=== PATIENT | female | born 1980 | race Caucasian/White ===

== ENCOUNTER 2016-12-25 14:08 | Observation (INO) | payer MEDICAID ==
[~2016-12-25 14:08] MED LIST: BUPR8SUB SL; CLIN75CA PO; CLON.5 PO; FLUT1SPR5 EACH NARE; PRENTAB44 PO; VENTAER INH
--- NOTE | 2016-12-25 14:35 | MH ---
cc: LOLA GASTON DATE OF ADMISSION: 12/25/2016 INDICATION A 32-week with known cervical incompetence, possibly breaking through her stitch, biophysical profile revealing low KATRINA of 5 cm, extreme stress. HISTORY OF PRESENT CONDITION The patient is a 36-year-old single white female, 2, para 0-1-0-1 with LMP 05/07/2016 and EDC February 19, 2017. Currently at 32-weeks by early dating, in the first trimester and subsequent sonography. She has been followed very closely through this and her prior . Her prior , she was hospitalized for extended length of time due to the recognition that her cervix was opening at 20-weeks and she was not a candidate for cerclage. This which was unplanned, we placed a cerclage at 11-weeks and it has held until apparently now. She is complicated by the fact that she is on chronic opioid maintenance specifically Subutex 8 mg t.i.d. She has mild hypertension that has been adequately controlled on Aldomet 250 b.i.d. She is on Gabapentin 300 mg four times a day and she takes occasional Klonopin for severe anxiety. Her [employer] Aide is Jewels Dos Santosmelissa at [phone]. She also sees someone by the name of Phyllis. Again, the Gabapentin is for chronic back pain and peripheral neuropathy. She has been very compliant with her care as she comes in every 1-2 weeks for her Subutex and management of her other issues. Her cerclage was checked digitally every other week and then in the interval she has biophysical profile. Her social situation is complicated at best and I think this does add to her stress. She has good movement. No leaking or bleeding. No headache, blurred vision, nausea or vomiting. Her weight gain has been from 188 to 224 pounds this . Her blood type is A+. Her hemoglobin was 14.5. She is immune to Spanish measles and chickenpox. She is hepatitis B negative, hepatitis C positive. Negative for Chlamydia and gonorrhea. Her tox screens in the office have been negative. 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 PHYSICAL EXAMINATION She on physical exam is an overweight female who appears very anxious. Her lungs are clear. Heart rate and rhythm are regular. Her fundus is difficult to palpate. Ultrasound today showed an KATRINA of 5, good cardiac rhythm on anterior placenta, decreased amniotic fluid. She got a 2 for movement, breathing, tone. Her cervix on physical exam still feels closed but ultrasound says she is dilated 2 cm and has 1.5 centimeters of thickness. Extremities are unremarkable. IMPRESSION 32-week on opioid maintenance with Subutex, history of hepatitis C, history of incompetent cervix, history of cerclage in place that may be being placed on tension. PLAN Plan is to proceed with 24-hour observation, repeat her biophysical profile and make sure there is no other issues going on. Lola Gaston MD PPC/TLL /12:52 PM /2:33 PM SANDOVAL
[2016-12-25] MEDS: LACTATED RINGER'S 1000 ML INJ 1,000 ML IV SCH ×3 (15:00→22:14)
[2016-12-25 16:16] LABS: BASOPHIL % 0.3 % (0.0-2.0); EOSINOPHIL # 0.3 TH/MM3 (0-0.4); EOSINOPHIL % 2.1 % (0.0-4.0); HEMATOCRIT 30.3 % (35.0-46.0); HEMO FLAGS DIFF FINAL; LYMPH % 17.6 % (9.0-44.0); LYMPHOCYTE # 2.4 TH/MM3 (1.0-4.8); MEAN CELL VOLUME 94.5 FL (80.0-100.0); MEAN CORPUSCULAR HEMOGLOBIN 30.5 PG (27.0-34.0); MEAN CORPUSCULAR HGB CONC 32.3 % (32.0-36.0); MONO % 7.2 % (0.0-8.0); NEUT % 72.8 % (16.0-70.0); PLATELET COUNT 240 TH/MM3 (150-450); RED CELL DISTRIBUTION WIDTH 14.3 % (11.6-17.2); WHITE BLOOD COUNT 13.7 TH/MM3 (4.0-11.0)
[2016-12-25 16:22] LABS: BARBITURATES, URINE NEG (NEG)
[2016-12-25 16:23] LABS: AMPHETAMINE, URINE NEG (NEG); COCAINE, URINE NEG (NEG)
[2016-12-25 16:38] LABS: BICARBONATE 25.6 MEQ/L (21.0-32.0); POTASSIUM 3.5 MEQ/L (3.5-5.1)
--- NOTE | 2016-12-25 17:46 | PD.OB.ANTE ---
Subjective Interval History Quiet in room but professes to be very anxious Wants a 1 mg klonipin to sleep no UCs on strip FHR reassuring Objective Lab & Micro Results Test 12/25/16 12/25/16 14:25 15:10 Urine Opiates Screen NEG Urine Barbiturates Screen NEG Urine Amphetamines Screen NEG Urine Benzodiazepines Screen NEG Urine Cocaine Screen NEG Urine Cannabinoids Screen NEG White Blood Count 13.7 TH/MM3 Red Blood Count 3.20 MIL/MM3 Hemoglobin 9.8 GM/DL Hematocrit 30.3 % Mean Corpuscular Volume 94.5 FL Mean Corpuscular Hemoglobin 30.5 PG Mean Corpuscular Hemoglobin 32.3 % Concent Red Cell Distribution Width 14.3 % Platelet Count 240 TH/MM3 Mean Platelet Volume 8.6 FL Neutrophils (%) (Auto) 72.8 % Lymphocytes (%) (Auto) 17.6 % Monocytes (%) (Auto) 7.2 % Eosinophils (%) (Auto) 2.1 % Basophils (%) (Auto) 0.3 % Neutrophils # (Auto) 10.0 TH/MM3 Lymphocytes # (Auto) 2.4 TH/MM3 Monocytes # (Auto) 1.0 TH/MM3 Eosinophils # (Auto) 0.3 TH/MM3 Basophils # (Auto) 0.0 TH/MM3 CBC Comment DIFF FINAL Differential Comment Sodium Level 138 MEQ/L Potassium Level 3.5 MEQ/L Chloride Level 105 MEQ/L Carbon Dioxide Level 25.6 MEQ/L Anion Gap 7 MEQ/L Blood Urea Nitrogen 7 MG/DL Creatinine 0.51 MG/DL Estimat Glomerular Filtration 137 ML/MIN Rate Random Glucose 106 MG/DL Calcium Level 9.2 MG/DL Physical Exam GENERAL: Well-nourished, well-developed patient. CARDIOVASCULAR: Regular rate and rhythm without murmurs, gallops, or rubs. RESPIRATORY: Breath sounds equal bilaterally. No accessory muscle use. ABDOMEN/GI: Abdomen soft, non-tender. strip reactive EXTREMITIES: No cyanosis or edema, non-tender, without signs of DVT. Assessment and Plan Assessment and Plan give betamethasone can have one dose klonipin BPP in Lola Jordan MD December 25, 2016 17:46
[2016-12-25] MEDS: BUPRENORPHINE HCL 8 MG SUBLINGUAL TAB SL SCH (17:51)
[2016-12-25] MEDS: BETAMETHASONE SOD PHOS/ACETATE SUSP 30 MG/5 ML VIAL IM SCH (17:51)
[2016-12-25] MEDS ORDERED: clonazePAM 1 MG TAB PO ONE (18:00)
[2016-12-25] MEDS: METHYLDOPA 250 MG TAB PO SCH (22:14)
[2016-12-26] MEDS: BUPRENORPHINE HCL 8 MG SUBLINGUAL TAB SL SCH ×3 (05:48→21:47)
--- NOTE | 2016-12-26 07:08 | PD.OB.ANTE ---
Subjective Interval History quiet night meeds ffn today and repeat BPP before determining if can go home. await results. can have her subutex while here. Objective Lab & Micro Results Test 12/25/16 12/25/16 14:25 15:10 Urine Opiates Screen NEG Urine Barbiturates Screen NEG Urine Amphetamines Screen NEG Urine Benzodiazepines Screen NEG Urine Cocaine Screen NEG Urine Cannabinoids Screen NEG White Blood Count 13.7 TH/MM3 Red Blood Count 3.20 MIL/MM3 Hemoglobin 9.8 GM/DL Hematocrit 30.3 % Mean Corpuscular Volume 94.5 FL Mean Corpuscular Hemoglobin 30.5 PG Mean Corpuscular Hemoglobin 32.3 % Concent Red Cell Distribution Width 14.3 % Platelet Count 240 TH/MM3 Mean Platelet Volume 8.6 FL Neutrophils (%) (Auto) 72.8 % Lymphocytes (%) (Auto) 17.6 % Monocytes (%) (Auto) 7.2 % Eosinophils (%) (Auto) 2.1 % Basophils (%) (Auto) 0.3 % Neutrophils # (Auto) 10.0 TH/MM3 Lymphocytes # (Auto) 2.4 TH/MM3 Monocytes # (Auto) 1.0 TH/MM3 Eosinophils # (Auto) 0.3 TH/MM3 Basophils # (Auto) 0.0 TH/MM3 CBC Comment DIFF FINAL Differential Comment Sodium Level 138 MEQ/L Potassium Level 3.5 MEQ/L Chloride Level 105 MEQ/L Carbon Dioxide Level 25.6 MEQ/L Anion Gap 7 MEQ/L Blood Urea Nitrogen 7 MG/DL Creatinine 0.51 MG/DL Estimat Glomerular Filtration 137 ML/MIN Rate Random Glucose 106 MG/DL Calcium Level 9.2 MG/DL Physical Exam GENERAL: Well-nourished, well-developed patient. CARDIOVASCULAR: Regular rate and rhythm without murmurs, gallops, or rubs. RESPIRATORY: Breath sounds equal bilaterally. No accessory muscle use. ABDOMEN/GI: Abdomen soft, non-tender. Fundus: [-] GENITOURINARY: External Genitalia: intact and normal in appearance Cervix: [-] Dilatation: [-] Effacement: [-] Station: [-] Presentation: [-] Membranes: [-] Uterine Contractions: [-] FHT's: Category: [-] Baseline: [-] Reactive: [-] Variability: [-] Decels: [-] EXTREMITIES: No cyanosis or edema, non-tender, without signs of DVT. Assessment and Plan Assessment and Plan give betamethasone can have one dose klonipin BPP in am Lola Jordan MD December 26, 2016 07:08
[2016-12-26] MEDS: GABAPENTIN 300 MG CAP PO SCH ×3 (09:11→17:54)
[2016-12-26] MEDS: METHYLDOPA 250 MG TAB PO SCH ×2 (09:11→20:50)
[2016-12-26] MEDS: LACTATED RINGER'S 1000 ML INJ 1,000 ML IV SCH ×2 (13:33→21:49)
[2016-12-26] MEDS: BETAMETHASONE SOD PHOS/ACETATE SUSP 30 MG/5 ML VIAL IM SCH (17:49)
--- NOTE | 2016-12-26 19:42 | PD.OB.ANTE ---
Subjective Interval History Quiet and would like discharge but 6/ on BPP and KATRINA is 5 will repeat tests in the morning just received second dose betamethasone FFN- Objective Lab & Micro Results Test 12/26/16 11:21 Fibronectin NEGATIVE Physical Exam GENERAL: Well-nourished, well-developed patient. CARDIOVASCULAR: Regular rate and rhythm without murmurs, gallops, or rubs. RESPIRATORY: Breath sounds equal bilaterally. No accessory muscle use. ABDOMEN/GI: Abdomen soft, non-tender. stitch in place but very thin cervix EXTREMITIES: No cyanosis or edema, non-tender, without signs of DVT. Assessment and Plan Assessment and Plan give betamethasone can have one dose klonipin BPP in am Lola Jordan MD December 26, 2016 19:42
[2016-12-26] MEDS ORDERED: clonazePAM 1 MG TAB PO ONE (19:45)
[2016-12-27] MEDS: BUPRENORPHINE HCL 8 MG SUBLINGUAL TAB SL SCH (06:06)
--- NOTE | 2016-12-27 07:13 | PD.OB.ANTE ---
Subjective Interval History quiet night Antepartum ROS: Reports: Vaginal bleeding, Denies: New complaints, Loss of fluid, movement normal, Contractions, Other Objective Lab & Micro Results Test 12/26/16 11:21 Fibronectin NEGATIVE Physical Exam GENERAL: Well-nourished, well-developed patient. CARDIOVASCULAR: Regular rate and rhythm without murmurs, gallops, or rubs. RESPIRATORY: Breath sounds equal bilaterally. No accessory muscle use. ABDOMEN/GI: Abdomen soft, non-tender. fundus difficult to measure category 1 strip] EXTREMITIES: No cyanosis or edema, non-tender, without signs of DVT. cerclage in place with no palpable length but closed FFN NEG Assessment and Plan Assessment and Plan received BPP in am if her KATRINA is better can go home. otherwise continue daily BPPs Lola Jordan MD December 27, 2016 07:13
[2016-12-27] MEDS: GABAPENTIN 300 MG CAP PO SCH (08:56)
[2016-12-27] MEDS: METHYLDOPA 250 MG TAB PO SCH (08:56)
[2016-12-27] MEDS: LACTATED RINGER'S 1000 ML INJ 1,000 ML IV SCH (08:57)
== END 2016-12-27 11:30 | disposition home or self-care (01) ==
LOC: H2EA 14:08
PROVIDERS: ADMIT Obstetrics & Gynecology; ATTEND Obstetrics & Gynecology
DX: O34.33 Maternal care for cervical incompetence, third trimester (principal); O16.3 Unspecified maternal hypertension, third trimester; O99.343 Other mental disorders complicating pregnancy, third trimester; O98.413 Viral hepatitis complicating pregnancy, third trimester; O99.353 Diseases of the nervous system complicating pregnancy, third trimester; B19.20 Unspecified viral hepatitis C without hepatic coma; F41.9 Anxiety disorder, unspecified; G62.9 Polyneuropathy, unspecified; G89.29 Other chronic pain; M54.9 Dorsalgia, unspecified; Z3A.32 32 weeks gestation of pregnancy; Z79.899 Other long term (current) drug therapy; Z79.891 Long term (current) use of opiate analgesic
CPT/HCPCS: 76815; 76816; 76819; 80048; 80307; 82731; 85025; G0378; J0702; J7120

== ENCOUNTER 2017-01-12 17:40 | Emergency (ER) | payer MEDICAID ==
[~2017-01-12] VITALS: Ht 167.6 cm; Wt 101.6 kg
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
== END 2017-01-12 20:47 | disposition home or self-care (01) ==
LOC: HOBED 17:40
DX: Z04.1 Encounter for examination and observation following transport accident (principal); O99.333 Smoking (tobacco) complicating pregnancy, third trimester; F17.200 Nicotine dependence, unspecified, uncomplicated; Z3A.34 34 weeks gestation of pregnancy
CPT/HCPCS: 99282

== ENCOUNTER 2017-01-16 15:15 | Inpatient (IN) | payer MEDICAID ==
[~2017-01-16] VITALS: Ht 167.6 cm; Wt 101.6 kg
[2017-01-16] VITALS (54 sets, daily range): BP systolic 120–157; BP diastolic 51–76; PULSE 73–105; RESP 18; TEMP 98.1–98.2
[2017-01-16] MEDS ORDERED: LACTATED RINGER'S 1000 ML INJ 1,000 ML IV PRN (16:26)
[2017-01-16] MEDS ORDERED: LIDOCAINE HCL 1% 50 ML VIAL INFIL PRN (16:30)
[2017-01-16] MEDS ORDERED: ONDANSETRON HCL 4 MG/2 ML VIAL IV PRN (16:30)
[2017-01-16] MEDS ORDERED: CITRIC ACID-SODIUM CITRATE LIQ 30 ML UDC PO SCH (16:30)
[2017-01-16] MEDS ORDERED: PENICILLIN G POTASSIUM INJ 5,000,000 UNITS in SODIUM CHLORIDE 0.9% INJ 100 ML IV ONE (16:30)
[2017-01-16] MEDS ORDERED: OXYTOCIN 30 UNITS-500ML PREMIX 500 ML IV ONE (16:30)
[2017-01-16] MEDS ORDERED: LIDOCAINE HCL 1% 50 ML VIAL I-DERMAL PRN (16:30)
[2017-01-16] MEDS ORDERED: OXYTOCIN 30 UNITS-500ML PREMIX 500 ML IV SCH (16:30)
[2017-01-16] MEDS ORDERED: MINERAL OIL 10 ML VIAL TOPICAL PRN (16:30)
[2017-01-16] MEDS ORDERED: SODIUM CHLORID 0.9% 500 ML INJ 500 ML IV PRN (16:30)
--- NOTE | 2017-01-16 16:41 | HHI.HP ---
HPI Chief Complaint 36 1/ with cerclage which she is breaking through. Needs removal of cerclage with epidural Date Seen: Jan 16, 2017 Travel History International Travel<30 Days: No Contact w/Intl Traveler<30Days: No Known Affected Area: No History of Present Illness HPI 36 maltese swf at 35 + with cerclage placed at 10 weeks. Did well until now with increasing UCs, discharge and sono showing complete effacement and dilation. Confirmed on digital exam. One of two stitches removed in room; second too uncomfortable to remove. WIll send to [facility] and remove with epidural. PNC complicated by opioid dependence, known incompetent cervix, anxiety and chronic pain. At one point had elevated BPs and took course of methyldopa They are normal recently. No GDM. surveillance reassuring. Para: 1 : 2 Allergies-Medications (Allergen,Severity, Reaction): Coded Allergies: Nonsteroidal Anti-Inflammatory Agts (Verified Allergy, Severe, 07/11/16) HX OF RENAL FAILURE Topamax (Verified Allergy, Severe, Tingling, 01/12/17) throat and tongue Latex (Verified Allergy, Unknown, Rash, 07/11/16) Uncoded Allergies: TYLENOL 3 (Allergy, Severe, Rash, 03/08/15) Home Meds Reported Medications Fluticasone Nasal [address] (Flonase Nasal [address])50 Mcg/Act Spray50 Mcg EACH NARE BID #1 BOTTLE Ref 0 07/13/16 Multivit-Min W/Fe-FA ( and Iron)1 Tab Tab1 Tab PO DAILY 07/11/16 Buprenorphine 8 Mg Subl8 Mg SL BID 07/11/16 Clindamycin 75 Mg CapUnknown Dose PO TID Ref 0 07/11/16 Albuterol 18 GM Inh (Ventolin Hfa 18 GM Inh)90 Mcg/Act Aer2 Puff INH Q4H PRN ( SHORTNESS OF BREATH) #1 INHALER Ref 0 07/05/16 Clonazepam (Klonopin)0.5 Mg Tab0.5 Mg PO BID #60 TAB Ref 0 07/05/16 Review of Systems General / Constitutional: No: Fever, Weight Gain, Chills, Other Physical Exam Narrative GENERAL: Well-nourished, well-developed patient. Increased BMI SKIN: Warm and dry. HEAD: Normocephalic and atraumatic. EYES: No scleral icterus. No injection or drainage. ENT: No nasal drainage noted. Mucous membranes pink. Airway patent. NECK: Supple, trachea midline. No JVD. CARDIOVASCULAR: Regular rate and rhythm without murmurs, gallops, or rubs. RESPIRATORY: Breath sounds equal bilaterally. No accessory muscle use. BREASTS: Bilateral exam showed no masses , no retractions, no nipple discharge. ABDOMEN/GI: Abdomen soft, non-tender, bowel sounds present, no rebound, no guarding Gravid to [-] weeks size fundus 36 cervix open and one of two stitches removed No tearing or bleeding prior to removal of first stitch EXTREMITIES: No cyanosis or edema. BACK: Nontender without obvious deformity. No CVA tenderness. NEUROLOGICAL: Awake and alert. Motor and sensory grossly within normal limits. Five out of 5 muscle strength in all muscle groups. Normal speech. Data Data Orders Admit To Inpatient (01/16/17 ) Code Status (01/16/17 16:26) Vital Signs (Adult) .Per protocol (01/16/17 16:26) Heart (01/16/17 16:26) Amnioinfusion (01/16/17 16:26) Urinary Catheter Management .ONCE (01/16/17 16:26) Diet Liquid (01/16/17 Dinner) Lactated Ringer's 1000 Ml Inj (Lr 1000 M (01/16/17 16:26) Lactated Ringer's 1000 Ml Inj (Lr 1000 M (01/16/17 16:26) Sodium Chlorid 0.9% 500 Ml Inj (Ns 500 M (01/16/17 16:30) Sodium Chlor 0.9% 1000 Ml Inj (Ns 1000 M (01/16/17 16:46) Lidocaine 1% Inj (50 Ml) (Xylocaine 1% I (01/16/17 16:30) Citric Acid-Sodium Citrate Liq (Bicitra (01/16/17 16:30) Ondansetron Inj (Zofran Inj) (01/16/17 16:30) Fentanyl Inj (Fentanyl Inj) (01/16/17 16:30) Fentanyl Inj (Fentanyl Inj) (01/16/17 16:30) Penicillin G Potassium Inj (Pfizerpen-G (01/16/17 16:30) Penicillin G Potassium Inj (Pfizerpen-G (01/16/17 20:30) Complete Blood Count With Diff (01/16/17 16:26) Hold Clot (01/16/17 16:) Abo/Rh Blood Type (01/16/17 16:) Urinalysis - C+S If Indicated (01/16/17 16:26) Resp Oxygen Non Rebreathe Mask (01/16/17 ) ^ Epidural / Intrathecal Infus (01/16/17 16:26) Oxytocin 30 Units-500ml Premix (Pitocin (01/16/17 16:30) Lidocaine 1% Inj (50 Ml) (Xylocaine 1% I (01/16/17 16:30) Light Mineral Oil (Muri-Lube Oil) (01/16/17 16:30) ^ Non Stress Test (01/16/17 16:26) Response To Medication .Post New Med Administration, Reaction (01/16/17 16:26) ^ Discontinue Medication (01/16/17 16:26) Assessment/Plan Assessment and Plan will admit. epidural then remove second cerclage give betamethasone leave epidural in place and induce in am. maintain subutex dosing vistaril 50 IM prn anxiety Lola Jordan MD Jan 16, 2017 16:41
[2017-01-16] MEDS ORDERED: BETAMETHASONE SOD PHOS/ACETATE SUSP 30 MG/5 ML VIAL IM ONE (16:45)
[2017-01-16] MEDS ORDERED: SODIUM CHLOR 0.9% 1000 ML INJ 1,000 ML IV PRN (16:46)
[2017-01-16 16:55] LABS: AUTOMATED NEUTROPHIL # 6.6 TH/MM3 (1.8-7.7); BASOPHIL % 0.4 % (0.0-2.0); EOSINOPHIL # 0.2 TH/MM3 (0-0.4); EOSINOPHIL % 1.7 % (0.0-4.0); HEMATOCRIT 32.6 % (35.0-46.0); HEMO FLAGS DIFF FINAL; LYMPH % 23.9 % (9.0-44.0); LYMPHOCYTE # 2.3 TH/MM3 (1.0-4.8); MEAN CELL VOLUME 94.6 FL (80.0-100.0); MEAN CORPUSCULAR HEMOGLOBIN 31.7 PG (27.0-34.0); MEAN CORPUSCULAR HGB CONC 33.5 % (32.0-36.0); MONO % 4.5 % (0.0-8.0); NEUT % 69.5 % (16.0-70.0); PLATELET COUNT 140 TH/MM3 (150-450); RED BLOOD COUNT 3.44 MIL/MM3 (4.00-5.30); RED CELL DISTRIBUTION WIDTH 14.5 % (11.6-17.2); WHITE BLOOD COUNT 9.5 TH/MM3 (4.0-11.0)
[2017-01-16 17:02] LABS: BLOOD, URINE MOD (NEG); GLUCOSE,URINE NEG (NEG); KETONE, URINE NEG (NEG); MUCUS URINE FEW /lpf (OCC); NITRITE,URINE NEG (NEG); PH, URINE 6.5 (5.0-8.5); SQUAMOUS EPITHELIAL CELL URINE 2 /hpf (0-5); URINE COLOR YELLOW (YELLW/STRAW)
[2017-01-16 17:05] LABS: COMMENT (UR) CULT NOT INDICATED; CULTURE IF INDICATED CULT NOT INDICATED
[2017-01-16] MEDS: fentaNYL 2MCG-BUPIV 0.125% INJ 100 ML ONE ×2 (17:31→20:34)
[2017-01-16] MEDS ORDERED: ePHEDrine/NS 25 MG/5 ML SYR ONE (17:31)
[2017-01-16] MEDS: fentaNYL 2MCG-BUPIV 0.125% 100 ML EPIDURAL SCH (17:45)
[2017-01-16] MEDS: LACTATED RINGER'S 1000 ML INJ 1,000 ML IV SCH (18:13)
--- NOTE | 2017-01-16 18:53 | PD.LABORPN ---
Subjective Subjective comfortable post epidural second stitch removed Objective Vital Signs Vital Signs Date Time Temp Pulse Resp B/P Pulse Ox O2 Delivery O2 Flow Rate FiO2 01/16/17 18:31 79 143/64 01/16/17 18:30 75 01/16/17 18:26 73 134/51 01/16/17 18:25 74 01/16/17 18:21 84 139/62 01/16/17 18:20 88 01/16/17 18:16 83 131/54 01/16/17 18:15 85 01/16/17 18:10 86 132/68 01/16/17 18:10 87 01/16/17 18:06 81 120/53 01/16/17 18:05 83 01/16/17 18:01 84 134/56 01/16/17 18:00 87 01/16/17 17:56 89 141/70 01/16/17 17:55 87 01/16/17 17:51 83 143/76 01/16/17 17:50 87 01/16/17 17:45 93 01/16/17 17:40 90 01/16/17 17:35 91 01/16/17 16:00 98.2 18 Objective 2 cm but has some length now that baby has moved upward BOW intact category 1 strip Assessment/Plan Assessment and Plan allow 12 hours for betamethasone and then begin pitocin Lola Jordan MD Jan 16, 2017 18:53
[2017-01-16] MEDS ORDERED: ZOLPIDEM TARTRATE 10 MG TAB PO PRN (19:00)
[2017-01-16] MEDS ORDERED: ePHEDrine/NS 25 MG/5 ML SYR IV PRN ×2 (19:45→20:45)
[2017-01-16] MEDS ORDERED: DO NOT ADMINISTER ANTICOAGULANTS PRN ×2 (19:45→20:45)
[2017-01-16] MEDS ORDERED: NO SYSTEM NARCOTICS PRN ×2 (19:45→20:45)
[2017-01-16] MEDS: BUPRENORPHINE HCL 8 MG SUBLINGUAL TAB SL SCH (20:30)
[2017-01-16] MEDS ORDERED: fentaNYL 2MCG-BUPIV 0.125% 100 ML EPIDURAL SCH (20:45)
[2017-01-16] MEDS: hydrOXYzine HCL 50 MG/ML VIAL IM PRN (21:31)
[2017-01-16] MEDS: PENICILLIN G POTASSIUM INJ 2,500,000 UNITS in SODIUM CHLORIDE 0.9% INJ 100 ML IV SCH (21:32)
[2017-01-17] VITALS (34 sets, daily range): BP systolic 109–159; BP diastolic 48–85; PULSE 66–87; RESP 17–18; TEMP 98–98.1
[2017-01-17] MEDS: PENICILLIN G POTASSIUM INJ 2,500,000 UNITS in SODIUM CHLORIDE 0.9% INJ 100 ML IV SCH ×6 (03:01→23:26)
[2017-01-17] MEDS: LACTATED RINGER'S 1000 ML INJ 1,000 ML IV SCH ×3 (03:02→22:25)
[2017-01-17] MEDS ORDERED: ZANT150T2 PO (03:46)
[2017-01-17] MEDS: hydrOXYzine HCL 50 MG/ML VIAL IM PRN ×2 (07:12→16:58)
[2017-01-17] MEDS: fentaNYL 2MCG-BUPIV 0.125% 100 ML EPIDURAL SCH (07:13)
[2017-01-17] MEDS: BUPRENORPHINE HCL 8 MG SUBLINGUAL TAB SL SCH ×3 (07:27→21:40)
--- NOTE | 2017-01-17 09:27 | PD.LABORPN ---
Subjective Subjective anxious, upset that leg not moving epidural turned off for now gfm Objective Vital Signs Vital Signs Date Time Temp Pulse Resp B/P Pulse Ox O2 Delivery O2 Flow Rate FiO2 01/17/17 09:01 84 130/85 01/17/17 08:45 18 01/17/17 08:31 74 124/59 01/17/17 08:00 71 125/69 01/17/17 07:15 17 01/17/17 07:13 17 01/17/17 07:00 70 127/66 01/17/17 06:15 18 01/17/17 06:00 76 126/62 01/17/17 05:15 18 01/17/17 05:00 66 112/65 01/17/17 04:15 18 01/17/17 04:00 72 109/60 01/17/17 02:29 18 01/17/17 02:10 79 01/17/17 02:05 86 01/17/17 02:00 80 01/17/17 02:00 80 125/59 Objective Pelvic Exam: 2/80/-2 arom clear strip category one Assessment/Plan Assessment and Plan pitocin epidural as needed subutex as needed notify NICU anaticipate oLla Peters MD Jan 17, 2017 09:27
[2017-01-17 17:32] LABS: AMPHETAMINE, URINE NEG (NEG); BARBITURATES, URINE NEG (NEG); COCAINE, URINE NEG (NEG)
[2017-01-17] MEDS ORDERED: LORazepam 0.5 MG TAB PO PRN (18:00)
[2017-01-18] MEDS: PENICILLIN G POTASSIUM INJ 2,500,000 UNITS in SODIUM CHLORIDE 0.9% INJ 100 ML IV SCH ×4 (03:16→14:40)
[2017-01-18] MEDS: LACTATED RINGER'S 1000 ML INJ 1,000 ML IV SCH ×3 (04:46→14:41)
[2017-01-18] MEDS: BUPRENORPHINE HCL 8 MG SUBLINGUAL TAB SL SCH ×3 (06:40→22:27)
[2017-01-18] MEDS ORDERED: BUPIVACAINE/EPINEPHRINE 0.25% PF 10 ML VIAL ONE (10:04)
[2017-01-18] MEDS: hydrOXYzine HCL 50 MG/ML VIAL IM PRN (10:12)
--- NOTE | 2017-01-18 10:50 | PD.LABORPN ---
Subjective Subjective comfortable with epidural back on Objective Objective 4-5/-2/100 category EFW 5 pounds pelvis clinically adequate Assessment/Plan Assessment and Plan anticipate maintain subutex Lola Jordan MD Jan 18, 2017 10:50
[2017-01-18] MEDS ORDERED: MEASLES, MUMPS, RUBELLA VACCINE 0.5 ML VIAL SQ ONE (16:00)
[2017-01-18] MEDS ORDERED: DIPHTH/TETANUS/ACEL PERTUSSIS (BOOSTER) 0.5 ML VIAL/PFS IM ONE (16:00)
[2017-01-18] MEDS: fentaNYL 2MCG-BUPIV 0.125% 100 ML EPIDURAL SCH (16:21)
--- NOTE | 2017-01-18 16:40 | PD.LABORPN ---
Subjective Subjective comfortable Objective Objective anterior lip/100/-1 category 1 strip Assessment/Plan Assessment and Plan Anticipate soon Lola Jordan MD Jan 18, 2017 16:39
--- NOTE | 2017-01-18 17:44 | PD.OB.DELI ---
Anesthesia: Epidural Episiotomy: None Vaginal Delivery: Normal Presentation: Occiput anterior Nuchal Cord: x2 Delayed cord clamping (45 sec): Yes : Female One Minute : 9 Five Minute : 9 Placenta: Spontaneous delivery Laceration: No lacerations Additional Information buprenorphine, klonipin, gabapentin, nicotine all used prenatally Lola Jordan MD Jan 18, 2017 17:43
[2017-01-18] MEDS ORDERED: ONDANSETRON ODT 4 MG TAB PO PRN (17:45)
[2017-01-18] MEDS ORDERED: WITCH HAZEL 50%/GLYCERIN 12.5% 40 PAD JAR TOPICAL PRN (17:45)
[2017-01-18] MEDS ORDERED: ZOLPIDEM TARTRATE 5 MG TAB PO PRN (17:45)
[2017-01-18] MEDS ORDERED: DOCUSATE SODIUM 50 MG/SENNA 8.6 MG TAB PO PRN (17:45)
[2017-01-18] MEDS ORDERED: ALUMINUM/MAGNESIUM/SIMETH 30 ML CUP PO PRN (17:45)
[2017-01-18] MEDS ORDERED: SODIUM CHLORIDE 0.9% FLUSH 10 ML FLUSH IV FLUSH PRN (17:45)
[2017-01-18] MEDS ORDERED: ACETAMINOPHEN 325 MG TAB PO PRN (17:45)
[2017-01-18] MEDS ORDERED: BENZOCAINE 20% TOPICAL SPRAY 60 ML CAN TOPICAL PRN (17:45)
[2017-01-18] MEDS ORDERED: BUPRENORPHINE HCL 8 MG SUBLINGUAL TAB SL SCH (18:00)
[2017-01-18] MEDS: GABAPENTIN 300 MG CAP PO SCH (19:17)
[2017-01-18] MEDS: clonazePAM 0.5 MG TAB PO PRN (19:50)
[2017-01-18] MEDS ORDERED: SODIUM CHLORIDE 0.9% FLUSH 10 ML FLUSH IV FLUSH SCH (21:00)
[2017-01-19 01:10] VITALS: BP 128/79; PULSE 72; RESP 18; TEMP 98.4
[2017-01-19] MEDS: clonazePAM 0.5 MG TAB PO PRN ×3 (06:19→22:24)
[2017-01-19] MEDS: GABAPENTIN 300 MG CAP PO SCH ×3 (06:19→22:24)
[2017-01-19] MEDS: BUPRENORPHINE HCL 8 MG SUBLINGUAL TAB SL SCH ×3 (06:19→22:24)
[2017-01-19 08:10] VITALS: BP 142/73; PULSE 84; RESP 20; TEMP 98.2
--- NOTE | 2017-01-19 08:23 | HHI.OB ---
Subjective Post Day: 1 Remarks Doing well, Baby is ok Eating well, Pain is well controlled,,,unable to take NSAIDS due to kidney failure Objective Vitals/I&O Vital Signs Date Time Temp Pulse Resp B/P Pulse Ox O2 Delivery O2 Flow Rate FiO2 01/19/17 01:10 98.4 72 18 128/79 Objective Remarks GENERAL: Well-nourished, well-developed patient. CARDIOVASCULAR: Regular rate and rhythm without murmurs, gallops, or rubs. RESPIRATORY: Breath sounds equal bilaterally. No accessory muscle use. ABDOMEN/GI: Abdomen soft, non-tender. Fundus: Firm, non-tender at umbilicus. GENITOURINARY: Light to moderate bleeding. EXTREMITIES: No cyanosis, non-tender, without signs of DVT. +2 LE pitting edema. Medications and IVs Current Medications Medications (Trade) Dose Ordered Sig/Lola Route Start Time Stop Time Status Last Admin (NS Flush) 2 ml BID IV FLUSH 01/18/17 21:00 (NS Flush) 2 ml UNSCH PRN IV FLUSH 01/18/17 17:45 (Tylenol) 650 mg Q4H PRN PO 01/18/17 17:45 01/18/17 22:28 (Motrin) 600 mg Q6H PRN PO 01/18/17 17:45 UNV (Americaine 20% Top Spr) 1 spray Q4H PRN TOPICAL 01/18/17 17:45 (Tucks Pads) 1 applic QID PRN TOPICAL 01/18/17 17:45 (Flores-Colace) 2 tab Q12H PRN PO 01/18/17 17:45 (Ambien) 5 mg HS PRN PO 01/18/17 17:45 (Mag-Al Plus Susp Liq) 15 ml Q8H PRN PO 01/18/17 17:45 (Zofran Odt) 4 mg Q6H PRN PO 01/18/17 17:45 (Neurontin) 300 mg TID PO 01/18/17 18:00 01/19/17 06:19 (KlonoPIN) 0.5 mg Q8HR PRN PO 01/18/17 17:45 01/19/17 06:19 (Buprenorphine) 8 mg Q8H SL 01/18/17 22:00 01/19/17 06:19 Assessment/Plan Assessment and Plan PPD #1 Mild thrombocytopenia. Will check platlets today H/O Renal failure and unable to take NSAIDs Viki Fragoso MD Jan 19, 2017 08:23
[2017-01-19 09:13] LABS: MEAN CELL VOLUME 92.8 FL (80.0-100.0); MEAN CORPUSCULAR HEMOGLOBIN 30.6 PG (27.0-34.0); PLATELET COUNT 251 TH/MM3 (150-450); RED BLOOD COUNT 3.45 MIL/MM3 (4.00-5.30); RED CELL DISTRIBUTION WIDTH 15.1 % (11.6-17.2); REVIEW FLAG FINAL
--- NOTE | 2017-01-19 09:34 | HHI.DCPOC ---
Discharge Care Plan Diagnosis: (1) Normal vaginal delivery Your Health Problems Are: Vaginal delivery Report Symptoms to Your Doctor -Temperature above 100.5 degrees -Redness, of incision or excessive or foul smelling drainage -Unusual pain or calf pain -Increased vaginal bleeding -Painful or difficulty urinating -Feelings of extreme sadness or anxiety after 2 weeks Goals to Promote Your Health * To prevent worsening of your condition and complications * To maintain your health at the optimal level Directions to Meet Your Goals Take your medications as prescribed Follow your dietary instruction Follow activity as directed Ensure plenty of rest for recovery Drink fluids for hydration Keep your appointments as scheduled Take your immunizations and boosters as scheduled If your symptoms worsen call your PCP, if no PCP go to Urgent Care Center or Emergency Room Smoking is Dangerous to Your Health. Avoid second hand smoke Call the 24-hour crisis hotline for domestic abuse at Yoselyn Wu Jan 19, 2017 09:33
[2017-01-19 13:25] LABS: BICARBONATE 27.6 MEQ/L (21.0-32.0); POTASSIUM 3.9 MEQ/L (3.5-5.1)
[2017-01-19] MEDS: IBUPROFEN 800 MG TAB PO PRN (16:09)
[2017-01-19 19:30] VITALS: BP 147/79; PULSE 78; RESP 18; TEMP 98.3
[2017-01-20] MEDS: IBUPROFEN 800 MG TAB PO PRN (00:34)
[2017-01-20] MEDS: GABAPENTIN 300 MG CAP PO SCH (06:59)
[2017-01-20] MEDS: BUPRENORPHINE HCL 8 MG SUBLINGUAL TAB SL SCH (06:59)
[2017-01-20] MEDS: clonazePAM 0.5 MG TAB PO PRN (06:59)
[2017-01-20 08:10] VITALS: BP 158/84; PULSE 78; RESP 16; TEMP 98
[2017-01-22 10:24] LABS: BATH SALTS (MDPV) UR NEG (NEG); ECSTASY (MDMA) UR NEG (NEG); GABAPENTIN UR NEG (NEG); HEROIN (6-ACETYLMORPHINE) UR NEG (NEG); HYDROMORPHONE U NEG (NEG); K2 SPICE UR NEG (NEG); OBMETHADONE UR NEG (NEG); OXYCODONE (PERCODAN) NEG (NEG)
[2017-01-25 10:04] LABS: PHENCYCLIDINE URINE NEG (NEG)
== END 2017-01-20 12:08 | disposition home or self-care (01) | DRG 982 ==
LOC: H2EA 15:15 → H1EA 01-18 20:29
PROVIDERS: ADMIT Obstetrics & Gynecology; ATTEND Obstetrics & Gynecology
PROC: 10E0XZZ Delivery of Products of Conception, External Approach (ICD-10-PCS; principal; 2017-01-16)
PROC: 0UCC7ZZ Extirpation of Matter from Cervix, Via Natural or Artificial Opening (ICD-10-PCS; 2017-01-16)
PROC: 3E0R3CZ (ICD-10-PCS; 2017-01-16)
PROC: 00HU33Z Insertion of Infusion Device into Spinal Canal, Percutaneous Approach (ICD-10-PCS; 2017-01-16)
DX: O34.33 Maternal care for cervical incompetence, third trimester (principal); O26.833 Pregnancy related renal disease, third trimester; D69.6 Thrombocytopenia, unspecified; N19 Unspecified kidney failure; O99.324 Drug use complicating childbirth; F11.20 Opioid dependence, uncomplicated; O99.12 Other diseases of the blood and blood-forming organs and certain disorders involving the immune mechanism complicating childbirth; O99.354 Diseases of the nervous system complicating childbirth; Z37.0 Single live birth; Z3A.35 35 weeks gestation of pregnancy; O69.81X0 Labor and delivery complicated by cord around neck, without compression, not applicable or unspecified; F41.9 Anxiety disorder, unspecified; O99.344 Other mental disorders complicating childbirth; G89.29 Other chronic pain; O09.529 Supervision of elderly multigravida, unspecified trimester
CPT/HCPCS: 59025; 80048; 80307; 81001; 85025; 85027; 86900; 86901; 90715; G0481; J0702; J2540; J2590; J3010; J3410; J7120